=== PATIENT | female | born 1985 | race Caucasian/White ===

== ENCOUNTER 2017-11-19 12:24 | Inpatient (IN) | payer OTHER ==
[2017-11-19 12:56] LABS: ADD MAN DIFF? NO
[2017-11-19 12:58] LABS: WHITE BLOOD COUNT 8.3 10^3/ul (4.8-10.8)
[2017-11-19 12:58] LABS: BASOPHILS % 0.2 % (0.0-2.0); EOSINOPHILS # 0.1 10^3/ul (0.0-0.5); EOSINOPHILS % 1.4 % (0.0-7.0); HEMATOCRIT 34.4 % (37.0-47.0); HEMOGLOBIN 11.5 g/dl (12.0-16.0); LYMPHOCYTES # 1.7 10^3/ul (0.8-2.9); LYMPHOCYTES % 20.8 % (15.0-51.0); MEAN CORPUSCULAR HEMOGLOBIN 31.4 pg (29.0-33.0); MEAN CORPUSCULAR HGB CONC 33.4 g/dl (32.0-37.0); MEAN PLATELET VOLUME 11.7 fl (7.4-10.4); MONOCYTE # 0.5 10^3/ul (0.3-0.9); MONOCYTES % 5.9 % (0.0-11.0); NEUTROPHIL # 5.9 10^3/ul (1.6-7.5); NEUTROPHILS % 71.1 % (39.0-77.0); PLATELET COUNT 148 10^3/UL (140-415); RED BLOOD COUNT 3.66 10^6/ul (4.20-5.40); RED CELL DISTRIBUTION WIDTH 13.6 % (11.5-14.5)
[2017-11-19 13:15] LABS: ALANINE AMINOTRANSFERASE 20 IU/L (13-69); ALBUMIN 3.7 g/dl (3.3-4.9); ALBUMIN/GLOBULIN RATIO 1.05; ALKALINE PHOSPHATASE 136 IU/L (42-121); ANION GAP 14 (8-16); ASPARTATE AMINO TRANSFERASE 16 IU/L (15-46); BILIRUBIN,INDIRECT 0.3 mg/dl (0-1.1); BILIRUBIN,TOTAL 0.3 mg/dl (0.2-1.3); BLOOD UREA NITROGEN 6 mg/dl (7-20); CALCIUM 9.2 mg/dl (8.4-10.2); CARBON DIOXIDE 24 mmol/L (21-31); CHLORIDE 104 mmol/L (97-110); CREATININE 0.52 mg/dl (0.44-1.00); GLUCOSE 103 mg/dl (70-220); POTASSIUM 3.8 mmol/L (3.5-5.1); SODIUM 138 mmol/L (135-144); TOTAL PROTEIN 7.2 g/dl (6.1-8.1); URIC ACID 4.9 mg/dl (3.1-7.9)
[2017-11-19 13:32] LABS: INR 0.92; PARTIAL THROMBOPLASTIN TIME 29.2 Sec (25.0-35.0); PROTIME 12.4 Sec (11.9-14.9)
[2017-11-19 13:52] LABS: ADD UMIC NO; UR ASCORBIC ACID NEGATIVE (NEGATIVE); UR BACTERIA FEW /HPF (NONE SEEN); UR BILIRUBIN (Dip) NEGATIVE (NEGATIVE); UR BLOOD (Dip) NEGATIVE (NEGATIVE); UR CLARITY SLIGHTLY CLOUDY (CLEAR); UR COLOR YELLOW (YELLOW); UR GLUCOSE (Dip) NEGATIVE (NEGATIVE); UR KETONES (Dip) NEGATIVE (NEGATIVE); UR LEUKOCYTE ESTERASE (Dip) NEGATIVE Leu/ul (NEGATIVE); UR NITRITE (Dip) NEGATIVE (NEGATIVE); UR RBC 0 /HPF (0-5); UR SPECIFIC GRAVITY (Dip) 1.014 (1.003-1.030); UR SQUAMOUS EPITHELIAL CELL FEW /HPF (FEW); UR TOTAL PROTEIN (Dip) NEGATIVE (NEGATIVE); UR UROBILINOGEN (Dip) NEGATIVE (NEGATIVE); UR WBC 2 /HPF (0-5)
[2017-11-19] MEDS ORDERED: MISOPROSTOL 200 MCG TAB PR (15:30)
[2017-11-19] MEDS ORDERED: LIDOCAINE 1% (MPF) 30 ML INJ INJ (15:30)
[2017-11-19] MEDS ORDERED: METHYLERGONOVINE 0.2 MG INJ IM (15:30)
[2017-11-19] MEDS ORDERED: OXYTOCIN 30 UNITS/LR 500 ML IV ×2 (15:30)
[2017-11-19] MEDS ORDERED: BUTORPHANOL 2 MG INJ IV ×2 (15:30)
[2017-11-19] MEDS ORDERED: CARBOPROST 250 MCG INJ IM (15:30)
[2017-11-19] MEDS: LACTATED RINGER'S 1,000 ML IV ×2 (17:44→19:26)
[2017-11-19] MEDS: DINOPROSTONE 10 MG VAG SUPP VAG (18:23)
[2017-11-19 18:35] LABS: HEPATITIS B SURFACE ANTIGEN NEGATIVE (NEGATIVE)
[2017-11-20] MEDS: LACTATED RINGER'S 1,000 ML IV ×4 (03:22→20:08)
[2017-11-20] MEDS: MISOPROSTOL 25 MCG CAPSULE PO ×4 (08:15→21:00)
[2017-11-20] MEDS ORDERED: FENTAnyl 2MCG/ML-ROPIV 0.2% 100 ML (11:25)
[2017-11-20] MEDS ORDERED: ONDANSETRON 4 MG INJ IV ×2 (16:00→21:30)
[2017-11-20] MEDS ORDERED: DIPHENHYDRAMINE 50 MG INJ IV ×2 (16:00→21:30)
[2017-11-20] MEDS ORDERED: NALOXONE (0.4 MG/ML) INJ IV (16:00)
[2017-11-20] MEDS: OXYTOCIN 30 UNITS/LR 500 ML IV ×2 (17:06→20:51)
[2017-11-20] MEDS: FENTAnyl 2MCG/ML-ROPIV 0.2% 100 ML BAG EPI (19:00)
[2017-11-20 20:37] LABS: RAPID PLASMA REAGIN NONREACTIVE (NR)
[2017-11-20] MEDS: LACTATED RINGER'S 1,000 ML IV* (21:27)
[2017-11-20] MEDS ORDERED: HYDROCODONE/APAP (5/325) TAB PO (21:30)
[2017-11-20] MEDS ORDERED: DIPHENHYDRAMINE 25 MG CAP PO (21:30)
[2017-11-20] MEDS ORDERED: SENNA/DOCUSATE NA (8.6MG/50MG) TAB PO (21:30)
[2017-11-20] MEDS ORDERED: CARBOPROST 250 MCG INJ IM (21:30)
[2017-11-20] MEDS ORDERED: NA PHOSPHATE/BIPHOS 133 ML ENEMA PR (21:30)
[2017-11-20] MEDS ORDERED: MISOPROSTOL 200 MCG TAB PR (21:30)
[2017-11-20] MEDS ORDERED: ONDANSETRON 4 MG TAB PO (21:30)
[2017-11-20] MEDS ORDERED: MAGNESIUM HYDROXIDE 30ML CUP PO (21:30)
[2017-11-20] MEDS ORDERED: WITCH HAZEL/GLYCERIN PAD PR (21:30)
[2017-11-20] MEDS ORDERED: DIBUCAINE 1% 30 GM OINT PR (21:30)
[2017-11-20] MEDS ORDERED: BENZOCAINE 20% 56 ML SPRAY TOP (21:30)
[2017-11-20] MEDS ORDERED: OXYTOCIN 30 UNITS/LR 500 ML IV (21:30)
[2017-11-20] MEDS: IBUPROFEN 600 MG TAB PO (23:40)
[2017-11-21] MEDS: LANOLIN 7 GM TUBE TOP (00:45)
[2017-11-21] MEDS: LACTATED RINGER'S 1,000 ML IV* ×2 (05:27→13:27)
[2017-11-21] MEDS: IBUPROFEN 600 MG TAB PO ×3 (05:33→16:58)
[2017-11-21 09:22] LABS: ADD MAN DIFF? NO
[2017-11-21 09:25] LABS: BASOPHILS % 0.2 % (0.0-2.0); EOSINOPHILS # 0.1 10^3/ul (0.0-0.5); HEMATOCRIT 33.4 % (37.0-47.0); LYMPHOCYTES # 1.6 10^3/ul (0.8-2.9); LYMPHOCYTES % 13.4 % (15.0-51.0); MEAN CORPUSCULAR HGB CONC 32.9 g/dl (32.0-37.0); MEAN CORPUSCULAR VOLUME 94.1 fl (82.0-101.0); MEAN PLATELET VOLUME 11.8 fl (7.4-10.4); MONOCYTE # 0.6 10^3/ul (0.3-0.9); MONOCYTES % 5.4 % (0.0-11.0); NEUTROPHIL # 9.2 10^3/ul (1.6-7.5); NEUTROPHILS % 79.5 % (39.0-77.0); PLATELET COUNT 138 10^3/UL (140-415); RED BLOOD COUNT 3.55 10^6/ul (4.20-5.40); RED CELL DISTRIBUTION WIDTH 13.6 % (11.5-14.5)
[2017-11-21 09:25] LABS: WHITE BLOOD COUNT 11.5 10^3/ul (4.8-10.8)
[2017-11-21 09:28] LABS: POSITIVE DIFF @See below
[2017-11-21] MEDS: SENNA/DOCUSATE NA (8.6MG/50MG) TAB PO ×2 (10:13→21:49)
[2017-11-21] MEDS: HYDROCODONE/APAP (5/325) TAB PO (16:59)
[2017-11-22] MEDS: IBUPROFEN 600 MG TAB PO ×3 (00:39→12:28)
[2017-11-22] MEDS: DIPHTH/TET/ACEL PERTUSS (ADULT) 0.5 ML VIAL IM* (09:00)
[2017-11-22] MEDS: MEASLES,MUMPS,RUBELLA VACCINE INJ SC* (09:00)
[2017-11-22] MEDS: VARICELLA VACCINE LIVE/PF 1,350 UNIT/0.5 ML ML SC* (09:00)
[2017-11-22] MEDS: SENNA/DOCUSATE NA (8.6MG/50MG) TAB PO (09:47)
== END 2017-11-22 13:20 | disposition home or self-care (01) | DRG 775 ==
LOC: OBT 12:24 → L-D 11-20 09:50 → PP1 11-20 23:08 → L-D 12:57 → OBT 15:10 → L-D 15:10
PROVIDERS: Specialist
PROC: 10E0XZZ Delivery of Products of Conception, External Approach (ICD-10-PCS; principal; 2017-11-20)
DX: O75.89 Other specified complications of labor and delivery (principal); R03.0 Elevated blood-pressure reading, without diagnosis of hypertension; Z3A.39 39 weeks gestation of pregnancy; Z37.0 Single live birth
CPT/HCPCS: 62319; 76815; 76818; 80053; 81001; 81003; 84560; 85025; 85384; 85610; 85730; 86592; 86850; 86900; 86901; 87340